=== PATIENT | male | born 1940 | race Caucasian/White ===

== ENCOUNTER 2018-10-18 17:58 | Inpatient (IN) | payer OTHER ==
[~2018-10-18] VITALS: Ht 154.9 cm; Wt 84.4 kg
[2018-10-18 18:01] VITALS: BP_SYST 116
--- NOTE | 2018-10-18 18:01 | NUR ---
Placed in room 01 . Placed on media monitor, blood pressure machine and pulse oximeter. To gown for exam. Side rails up. Report received from CALEB Dorsey
--- NOTE | 2018-10-18 18:02 | NUR ---
Patient arrived BLS from [facility]. Report was given earlier from CALEB Haque stating patient would be transferred to us from Dialysis center for coffee ground emesis x1 this morning and tachycardia of 102 prior to dialysis. Patient was seen at [facility] on October 10, 2018 and diagnosed with aspiration pneumonia. and returned to facility on October 13, 2018. Staff is concerned because no EGD was done and patient returned to facility on no antibiotics. Patient is awake and alert, arrives on trach with t-bar on 4L of . Patient communicates by writing on clipboard. Patient denies any pain at this time. No other complaints/injuries per patient or as noted. Will continue to monitor.
--- NOTE | 2018-10-18 18:05 | NUR ---
Dr Avina at bedside examining patient
--- NOTE | 2018-10-18 18:25 | NUR ---
Note narendraone in EDM - 10/18/18 at 1836 by SDEDCJM # 20 gauge angiocath placed to LAC. Use of asceptic technique. Opsite placed over site. Blood return noted. Blood for lab drawn from site. Flushed with 10 cc of normal saline. No evidence of infiltration noted. Patient tolerated well.
--- NOTE | 2018-10-18 18:25 | NUR ---
# 20 gauge angiocath placed to Lfa. Use of asceptic technique. Opsite placed over site. Blood return noted. Blood for lab drawn from site. Flushed with 10 cc of normal saline. No evidence of infiltration noted. Patient tolerated well.
[2018-10-18 18:48] LABS: BASOPHILS % (AUTO) 0.1 % (0.0-2.0); EOSINOPHILS % (AUTO) 0.1 % (0.0-4.0); HEMATOCRIT 40.2 % (36-54); HEMOGLOBIN 13.2 g/dL (14.0-18.0); LYMPHOCYTES # (AUTO) 0.7 K/uL (1.0-5.5); LYMPHOCYTES % (AUTO) 3.3 % (20.5-51.5); MEAN CORPUSCULAR HEMOGLOBIN 32 pg (27-31); MEAN CORPUSCULAR HGB CONC 33 % (32-36); MEAN CORPUSCULAR VOLUME 99 fL (79.0-98.0); MONOCYTES # (AUTO) 0.8 K/uL (0.0-1.0); MONOCYTES % (AUTO) 4.3 % (1.7-9.3); NEUTROPHILS # (AUTO) 17.9 K/uL (1.8-7.7); NEUTROPHILS % (AUTO) 92.2 % (40.0-70.0); PLATELET COUNT (AUTO) 398 K/uL (130-430); RED BLOOD CELL COUNT(AUTO) 4.07 MIL/uL (4.2-6.2); RED CELL DISTRIBUTION WIDTH 17.3 % (9.0-15.0); WHITE BLOOD COUNT (AUTO) 19.5 K/uL (4.8-10.8)
--- NOTE | 2018-10-18 18:48 | NUR ---
Patient arrives with copy of POLST stating full code.
--- NOTE | 2018-10-18 18:50 | NUR ---
Patient has dialysis MWF. Patient was last dialyzed today prior to arrival in ED
--- NOTE | 2018-10-18 18:50 | NUR ---
Patient is on NOVASOURCE RENAL @ 55CC/HR x20 hours to provide total of 1100 CCs to infuse from 2pm to 10 am or until dose is met.
[2018-10-18] MEDS ORDERED: AMI200 GT (18:58)
[2018-10-18] MEDS ORDERED: APIX2.5T GT (18:58)
[2018-10-18] MEDS ORDERED: FINA5TAB3 GT (18:58)
[2018-10-18] MEDS ORDERED: MIDO5TAB GT (18:58)
[2018-10-18] MEDS ORDERED: LEVA1.2527 NEB (18:58)
[2018-10-18] MEDS ORDERED: PRO40 GT (18:58)
[2018-10-18] MEDS ORDERED: DOXA2TAB GT (18:58)
[2018-10-18] MEDS ORDERED: IPRA0.2S53 IH (18:58)
[2018-10-18] MEDS ORDERED: LACT1CAP61 GT (18:58)
[2018-10-18 19:00] LABS: ANION GAP 11 (5-15); CALCIUM 10.9 mg/dL (8.4-11.0); CHLORIDE 100 mmol/L (98-107); CREATININE 4.29 mg/dL (0.55-1.30); GLUCOSE 159 mg/dL (70-99); POTASSIUM 4.2 mmol/L (3.5-5.1); SODIUM SERUM 136 mmol/L (136-145); UREA NITROGEN, BLOOD 47 mg/dL (8-21)
[2018-10-18] MEDS ORDERED: NEPH GT (19:00)
--- NOTE | 2018-10-18 19:01 | NUR ---
Medication reconciliation completed with information provided by patient's EMAR from facility. Any prior medication reconciliation on file was reviewed and corrected.
[2018-10-18 19:07] LABS: ALANINE AMINOTRANSFERASE 11 U/L (12-78); ALBUMIN 2.5 g/dL (3.4-4.8); ASPARTATE AMINOTRANSFERASE 28 U/L (10-37); TOTAL BILIRUBIN 0.4 mg/dL (0.0-1.0)
[2018-10-18] MEDS ORDERED: NACL 0.9% 1,000 ML IV ONE (19:15)
--- NOTE | 2018-10-18 19:42 | NUR ---
Pt attempting to cough with gurgling sounds coming from trach. SPO2 95% on O2 at 2LPM per T-bar trach. In-line suction provided x 3 removing copious amounts of thick, light-brown sputum. No further coughing noted or gurgling sounds to trach tubing. SPO2 at 96%.
[2018-10-18] MEDS ORDERED: cefTRIAXone 1 GM IVPB PREMIX 50 ML IV ONE (19:45)
[2018-10-18] MEDS ORDERED: PANTOPRAZOLE GRANULES PACKET 40 MG GT ONE (19:45)
[2018-10-18 19:58] LABS: INR 1.1 (0.80-1.20); PROTHROMBIN TIME 11.4 SECS (9.5-12.5)
[2018-10-18] MEDS ORDERED: PANTOPRAZOLE SODIUM 40 MG/VIAL (PROTONIX) IVP ONE (20:00)
[2018-10-18] MEDS ORDERED: PANTOPRAZOLE SODIUM 40 MG/VIAL (PROTONIX) ONE (20:04)
--- NOTE | 2018-10-18 20:13 | NUR ---
patient arrived with his won ambu bag and suction machine. Will be sent to floor with patient
[2018-10-18] MEDS ORDERED: ALBUTEROL SULFATE 0.083% 2.5 MG/3 ML VIAL.NEB INH PRN (20:30)
[2018-10-18] MEDS ORDERED: IPRATROPIUM BROM 0.5 MG/2.5 ML VIAL.NEB (ATROVENT) INH PRN (20:30)
[2018-10-18 20:46] LABS: HEMATOCRIT 37.1 % (36-54); HEMOGLOBIN 12.1 g/dL (14.0-18.0)
--- NOTE | 2018-10-18 20:53 | NUR ---
ADMIT NOTE Received pt from ER to the floor with a diagnosis of GI BLEED AND CHRONIC TRACH. Admission process initiated. patient oriented to pain management, safety and call light-teach back done.
--- NOTE | 2018-10-18 20:53 | NUR ---
Patient will be admitted to care of Dr. Ga. Admitted to Telemetry unit. Will go to room 112 A. Belongings list completed. Summary report printed. Report will be given at bedside.
[2018-10-18 21:24] VITALS: BP_SYST 139
[2018-10-18 21:29] VITALS: BP_SYST 123
--- NOTE | 2018-10-18 22:00 | NUR ---
christian education director Physical Assessment NOTES: took over care from nurse Pk, from [facility] to ER c/o vomiting coffee ground and increase heart rate for 2 days with Diagnosis of GI Bleed and Chronic trach. pt. awake , alert, nonverbal, communicates thru writing, trach intact to T bar, O2 @ 4l, coughing a lot, suction thick brownish mucus secretions. placed on telemetry monitor and shows sinus tach. moves extremities, weak on both lower extremities, came in with big heel protector. checked skin with multiple areas of scabs on his toes,both arms, both thigh wrapped with kerlix roll and dressing endorse to be skin graft, appears red and on left upper back. dressing also on sacral area, with some type of plastic drain on coccyx area, did not remove dressing at this time , needs to be seen by MD.IV NS via left forearm/wrist area with NS @ 100 cc/hr. pt. is NPO, with g tube and clamped. [pt. apparently on HD, hiren or permacath on rt. subclavian. call light within reach, safety measures in place, bed alarm on, clip board with pen provided.
[2018-10-18] MEDS: ALBUTEROL SULFATE 0.083% 2.5 MG/3 ML VIAL.NEB INH SCH (23:47)
[2018-10-18] MEDS: IPRATROPIUM BROM 0.5 MG/2.5 ML VIAL.NEB (ATROVENT) INH SCH (23:47)
--- NOTE | 2018-10-19 | NUR ---
NOTES: pt. checked and was sleeping, in no acute distress. HOB elevated for comfort.
[2018-10-19] MEDS: NACL 0.9% 1,000 ML IV SCH ×3 (00:18→17:40)
--- NOTE | 2018-10-19 00:31 | NUR ---
CONSULT: CONSULT CALLED FOR DR. YANIQUE WILKINSON IS PI/SENIOR RESEARCH ASSOCIATE FOR TODAY I SPOKE KYLER PINEDA REASON FOR CONSULT: CHRONIC TRACH REQUESTING CONSULT: DR. AGUILERA Addendum: 10/19/18 at 0035 by Saida White HI/ FORGOT TO MENTION THAT DR. WHEELER IS ON FOR DR. CHANEL
--- NOTE | 2018-10-19 00:39 | NUR ---
CONSULT CONSULT CALLED FOR DR. HANNA I SPOKE WITH ANNE PINEDA REASON FOR CONSULT: DIALYSIS REQUESTING CONSULT: DR. AGUILERA MESSAGE AND DELIVERY SERVICE PRICER PHONE NUMBER: [phone]
--- NOTE | 2018-10-19 00:48 | NUR ---
CONSULT: CONSULT CALLED FOR DR. BART WILKINSON IS BASE WAD OPERATOR ADJUSTER I SPOKE WITH ANNE PINEDA REASON FOR CONSULT: GI BLEEDING K [employer]OL PRINCIPAL PHONE NUMBER: [phone]
--- NOTE | 2018-10-19 01:00 | NUR ---
NOTES: remain sleeping, cardiac pattern unchanged. continue to monitor.
[2018-10-19 01:30] VITALS: BP_SYST 102
[2018-10-19 02:28] LABS: HEMATOCRIT 33.3 % (36-54)
[2018-10-19] MEDS: IPRATROPIUM BROM 0.5 MG/2.5 ML VIAL.NEB (ATROVENT) INH SCH ×6 (03:00→23:56)
[2018-10-19] MEDS: ALBUTEROL SULFATE 0.083% 2.5 MG/3 ML VIAL.NEB INH SCH ×6 (03:00→23:56)
--- NOTE | 2018-10-19 03:15 | NUR ---
NOTES: pt. awakened and called , wants to be suction via trach, still with thick brownish secretions. suction himself orally with cialin. repositioned. needs attended.
--- NOTE | 2018-10-19 05:00 | NUR ---
NOTES: pt. already awake. wants to be suctioned via trach, oral care done. repositioned, turn to sides, able to help pull up himself in bed. IV intact. no urine output. needs attended. call light within reach.
--- NOTE | 2018-10-19 06:00 | NUR ---
NOTES: pt. remains awake, watching TV. IV intact. in no acute distress. call light at bedside.
[2018-10-19] MEDS: PIPERACILLIN/TAZO 2.25G/DEX-IS 50 ML IV SCH ×3 (06:30→17:39)
--- NOTE | 2018-10-19 06:45 | NUR ---
CLOSING NOTES; pt. resting comfortably, suctioned self orally, kept HOB elevated. pharmacy callled about Zosyn, pt. allergic with amoxicillin, will check with MD today. for further care and observation, call light in reach, safety measures in place, wound care nurse consult today, will endorse to day shift.
--- NOTE | 2018-10-19 07:35 | NUR ---
OPENING NOTE Patient resting in the bed. No acute distress. Respiration even and unlabored. Trach intact, O2 at 4L/min via T-bar. Denied of pain at this time. Skin warm and dry to touch. IV intact ot left wrist, no redness, no swelling, no drainage. ON NS at 100ml/hr, infusing well. Permacath intact to right subclavian, coved with clean and dry dressing, no bleeding noted. Safety measure maintained. Bed locked in low position, side rails up, bed alarm on. Call light within reached. Will continue to monitor.
[2018-10-19 07:50] VITALS: BP_SYST 108
[2018-10-19 08:41] LABS: HEMATOCRIT 32.3 % (36-54); HEMOGLOBIN 10.6 g/dL (14.0-18.0)
[2018-10-19] MEDS: AMIODARONE HCL 200 MG TABLET GT SCH (09:00)
[2018-10-19] MEDS: MIDODRINE HCL 5 MG TABLET (PROAMATINE) GT SCH (09:00)
[2018-10-19] MEDS: PANTOPRAZOLE SODIUM 40 MG/VIAL (PROTONIX) IVP SCH ×2 (09:44→21:55)
--- NOTE | 2018-10-19 09:52 | NUR ---
VERIFY THE ORDER OF ZOSYN Verify the order of Zosyn with Danny Andino via phone. Reported to Dr. Ga, patient has allergy of Amoxicillin, ask if okay to give Zosyn. Dr. Ga stated "just give Zosyn, patient already received from ER yesterday and nothing happen".
--- NOTE | 2018-10-19 10:02 | NUR ---
Nutrition Update Bret Scale 12 noted. Pt admitted for GI bleed and chronic trach. Diet: NPO BMI: 28.5 kg/m2 RD to follow per nutrition care standards.
--- NOTE | 2018-10-19 10:40 | NUR ---
WOUND EVALUATION: Late note for 1040 secondary to patient care. Wound Consult received from Dr. Ga. Thank you, Dr. Ga, for the consult. Patient received in a Rj Bed, awake, alert, oriented, limited vocally secondary to Tracheostomy (uses pen and paper to communicate). Patient is unable to turn independently. Bret Score is a 12. Past Medical History: Chronic Tracheostomy, not on ventilator, G-tube, End-Stage Renal Disease, chronic Atrial Fibrillation, Hypertension, cardiac disease. Recent Labs: WBC 19.5, RBC 4.07, hemoglobin 10.5, hematocrit 32.0, BUN 47, creatinine 4.29, glucose 159, albumin 2.5. Microbiology: Blood culture results 2 in progress. MRSA screen results positive. Intrinsic factors that delay wound healing: Hypoalbuminemia. Extrinsic factors that delay wound healing: Decreased mobility. Patient said that the wounds have been treated for the past 9 months. Patient's board with skin assessment details was wiped clean, will re-assess sites tomorrow. Wound Assessment: 1. Left anterior lateral thigh: Possible surgical skin graft donor site, present on admission. Site has red tissue, with yellow and black scab material. Mild odor, scant yellow drainage. Renay-wound intact. 2. Right anterior lateral thigh: Possible surgical skin graft donor site, present on admission. Site has red tissue, with yellow and black scab material. Mild odor, scant yellow drainage. Renay-wound intact. Recommend: Cleanse sites with normal saline. Pat dry. Apply Venelex ointment to sites. Cover sites with oil emulsion dressings, then ABD Pads. Wrap with zaire wrap. Secure with tape. 3. Left buttock: Possible surgical skin graft recipient site, present on admission. Site has healing pink skin tissue. No odor, scant sanguineous drainage. Renay-wound intact. 4. Right buttock: Possible surgical skin graft recipient site, present on admission. Site has healing pink skin tissue. No odor, scant sanguineous drainage. Renay-wound intact. Recommend: Cleanse sites with normal saline. Pat dry. Cover sites with oil emulsion dressings, then ABD Pads. Secure with transparent dressings. 5. Left second toe: Acute on chronic wound of unknown etiology, present on admission. Wound bed has 95% black scab, 5% red tissue. No odor, scant sanguineous drainage. Periwound intact. Recommend: Cleanse wound with normal saline. Apply SurePrep to renay-wound. Cover with foam dressing. Perform wound care daily, and as needed for dressing soiling or dislodgement. 6. Left third toe, dorsal lateral aspect: Area of non-blanchable erythema, present on admission. 7. Right third toe, dorsal lateral aspect: Area of non-blanchable erythema, present on admission. 8. Right plantar foot: Multiple, multiple scabs, present on admission. No odor, no drainage. Recommend: No dressings needed. Continue to monitor sites every shift. Also recommend: Reposition patient [id number] only every 2 hours with one pillow underneath back, and pillow underneath pelvis. Off-load pressure areas with pillows for pressure re-distribution. Offload, elevate and float bilateral heels with one pillow lengthwise under each extremity at all times. Perform skin care and monitor skin integrity Q shift. Use moisture barrier cream on buttocks and other moisture susceptible areas QID and as needed for soiling. Place patient on a low air-loss mattress.
--- NOTE | 2018-10-19 11:07 | NUR ---
POSITIVE MRSA OF NARES Received from lab, patient with MRSA of nares positive. Danny Andino in the unit informed.
[2018-10-19 12:00] VITALS: BP_SYST 111
--- NOTE | 2018-10-19 13:00 | NUR ---
ROUND Patient resting in the bed. No acute distress. Respiration even and unlabored. Trach intact to O2 4L/min. HOB elevated. Safety measure maintained. Call light within reached. Bed locked in low position, side rails up, bed alarm on. Continue to monitor.
[2018-10-19 14:06] LABS: HEMOGLOBIN 10.5 g/dL (14.0-18.0)
--- NOTE | 2018-10-19 15:25 | NUR ---
ROUND Patient resting in the bed. No acute distress. Respiration even and unlabored. Trach intact to O2 4L/min. HOB elevated. On contact isolation. Safety measure maintained. Call light within reached. Bed locked in low position, side rails up, bed alarm on. Continue to monitor.
[2018-10-19 15:26] VITALS: BP_SYST 112
[2018-10-19] MEDS: BALSAM PERU/CASTOR OIL 60 GM OINT...G. TP SCH (17:40)
--- NOTE | 2018-10-19 18:05 | NUR ---
SEEN AND EXAMINED BY ARISTEO WYNN WITH ORDER RECEIVED.
--- NOTE | 2018-10-19 18:45 | NUR ---
CLOSING NOTE Patient resting in the bed. No acute distress. Respiration even and unlabored. Trach intact, O2 at 4L/min via T-bar. Denied of pain at this time. Skin warm and dry to touch. IV intact to left wrist, no redness, no swelling, no drainage. On NS at 100ml/hr, infusing well. Permacath intact to right subclavian, coved with clean and dry dressing, no bleeding noted. No contact isolation for MRSA of nares. All needs met and attended. Safety measure maintained. Bed locked in low position, side rails up, bed alarm on. Call light within reached. Will endorse to night nurse.
--- NOTE | 2018-10-19 19:05 | NUR ---
CHANGE OF SHIFT; pt. awake, alert , in no acute distress. on trach to T bar @ 4liters O2. on contact isolation for MRSA nares. will reassess later. call light at bedside. safety measures in place.
[2018-10-19 20:15] VITALS: BP_SYST 132
--- NOTE | 2018-10-19 20:30 | NUR ---
NOTES: flower shop laborer/designer at bedside for blood draw for H/H as ordered. contact isolation observed for MRSA nares.suctioned via trach #7 Port[place].suctioned himself orally. needs attended.call light within reach.
[2018-10-19 20:52] LABS: HEMATOCRIT 30.9 % (36-54); HEMOGLOBIN 10.2 g/dL (14.0-18.0)
--- NOTE | 2018-10-19 22:45 | NUR ---
NOTES: suctioned via trach with thick secretions, oral care done and hs care. repositioned. call light at bedside.
--- NOTE | 2018-10-20 00:15 | NUR ---
NOTES: made rounds and sleeping. condition guarded. call light in reach.
[2018-10-20 01:52] VITALS: BP_SYST 127
--- NOTE | 2018-10-20 02:30 | NUR ---
NOTES: pt. sleeping at intervals. coughs every now and then, still with thick mucus secretions.
[2018-10-20 02:38] LABS: HEMOGLOBIN 10.3 g/dL (14.0-18.0)
[2018-10-20] MEDS: PIPERACILLIN/TAZO 2.25G/DEX-IS 50 ML IV SCH ×4 (03:55→18:00)
[2018-10-20] MEDS: NACL 0.9% 1,000 ML IV SCH ×2 (03:56→15:53)
--- NOTE | 2018-10-20 04:06 | NUR ---
NOTES: pt. called , suctioned via trach, oral care done, able to remove old secretions on his palate and tongue, felt much better after. IVF changed bag.
--- NOTE | 2018-10-20 05:00 | NUR ---
NOTES; pt. repositioned, suctioned via trach and orally, oral care done. needs attended. safety measures in place.
[2018-10-20] MEDS: ALBUTEROL SULFATE 0.083% 2.5 MG/3 ML VIAL.NEB INH SCH ×6 (05:50→23:08)
[2018-10-20] MEDS: IPRATROPIUM BROM 0.5 MG/2.5 ML VIAL.NEB (ATROVENT) INH SCH ×6 (05:51→23:08)
--- NOTE | 2018-10-20 06:30 | NUR ---
CLOSING NOTES; pt. went back to sleep, appears comfortable, trach intact and IV infusing. for further care and assist.. contact isolation observed.
--- NOTE | 2018-10-20 07:43 | NUR ---
OPENING NOTE Patient resting in the bed. No acute distress. Respiration even and unlabored. Trach intact to O2 at 4L/min via T-bar. Denied of pain at this time. Skin warm and dry to touch. IV intact to left wrist, no redness, no swelling, no drainage. On NS at 100ml/hr, infusing well. Permacath intact to right subclavian, coved with clean and dry dressing, no bleeding noted. Safety measure maintained. Bed locked in low position, side rails up, bed alarm on. Call light within reached. Will continue to monitor.
[2018-10-20 08:00] VITALS: BP_SYST 135
--- NOTE | 2018-10-20 08:34 | NUR ---
SEEN AND EXAMINED BY JANUSZ FREEMAN.
--- NOTE | 2018-10-20 08:59 | NUR ---
SEEN AND EXAMINED BY OSWALDO WEISS WITH ORDER RECEIVED.
--- NOTE | 2018-10-20 09:28 | NUR ---
SEEN AND EXAMINED BY TRISTAN HERNANDEZ.
[2018-10-20 09:46] LABS: HEMATOCRIT 32.4 % (36-54); HEMOGLOBIN 10.8 g/dL (14.0-18.0)
--- NOTE | 2018-10-20 09:58 | NUR ---
CONSULT NEPHRO: Eleanor PALMA CALLED SPOKE TO JESSICA DIALED [phone] HANNA
[2018-10-20] MEDS: PANTOPRAZOLE SODIUM 40 MG/VIAL (PROTONIX) IVP SCH ×2 (10:08→21:30)
[2018-10-20] MEDS: MIDODRINE HCL 5 MG TABLET (PROAMATINE) GT SCH (10:09)
[2018-10-20] MEDS: AMIODARONE HCL 200 MG TABLET GT SCH (10:10)
[2018-10-20] MEDS: BALSAM PERU/CASTOR OIL 60 GM OINT...G. TP SCH (10:10)
--- NOTE | 2018-10-20 10:17 | NUR ---
RECEIVED THE CALL FROM DR. SANTILLAN, REAL Reported to Dr. Santillan, patient dialysis schedule on Thu, Thu and Thursday. Patient admitted on Thursday after dialysis. Dr. Hopkins saw the patient and with order of dialysis today still active in the system. Dr. Santillan stated "do the dialysis today, will come to see the patient".
[2018-10-20 12:13] VITALS: BP_SYST 149
--- NOTE | 2018-10-20 12:25 | NUR ---
ROUND Patient resting in the bed with eyes close. No acute distress. Trach intact to O2 via T-bar. HOB elevated. GT intact, patient, no residual. On Nepro at 55ml/hr, tolerated well. Continue on contact isolation. Safety measure maintained. Call light within reached. Bed locked in low position, side rails up, bed alarm on. Continue to monitor.
--- NOTE | 2018-10-20 14:25 | NUR ---
FRIEND VISITED AT BEDSIDE Patient resting in the bed and friend visited at bedside and talked to patient. No acute distress. Respiration even and unlabored. Trach intact to O2 via T-bar. Contact isolation maintained. Safety measure maintained. Call light within reached. Bed locked in low position, side rails up. Bed alarm on. Continue to monitor.
[2018-10-20 15:45] LABS: HEMATOCRIT 32.1 % (36-54); HEMOGLOBIN 10.4 g/dL (14.0-18.0)
--- NOTE | 2018-10-20 16:10 | NUR ---
ROUND Patient resting in the bed with eyes closed. No acute distress. Respiration even and unlabored. Trach intact to O2 4L/min. HOB elevated. On contact isolation. Safety measure maintained. Call light within reached. Bed locked in low position, side rails up, bed alarm on. Continue to monitor.
[2018-10-20 16:30] VITALS: BP_SYST 137
--- NOTE | 2018-10-20 16:30 | NUR ---
Dietitian Recommendations * Recommend Nepro at 55 ml/hr, Mirza BID, Prosource BID, Free Water Flush: 100 ml Q8h via GT Provides: 2656 kcal/day, 142 gm protein/day, and 1260 ml free water/day Meets: 91% of upper end of estimated caloric needs and 114% of lower end of estimated protein needs LP, RD Please refer to Nutrition Assessment for details. Addendum: 10/20/18 at [address] Amended: Links added.
--- NOTE | 2018-10-20 18:00 | NUR ---
HEMODIALYSIS STARTED Patient resting in the bed. No acute distress. VS stable. Hemodialysis started, dialysis nurse at bedside. Safety measure maintained. Call light within reached. Bed locked in low position, side rails up, bed alarm on. Continue to monitor.
--- NOTE | 2018-10-20 18:50 | NUR ---
CLOSING NOTE Patient continue on hemodialysis, dialysis nurse at bedside. No acute distress. Trach intact to O2 4L/min via T-bar. GT intact, patent, continue on Nepro at 55ml/hr, infusing well. HOB elevated all the time. No nausea/vomiting noted during shift. All needs met and attended. Safety measure maintained. Contact isolation maintained. Call light within reached. Will endorse to night nurse.
[2018-10-20] MEDS ORDERED: HEPARIN SODIUM,PORCINE 5000 UNITS/ML VIAL SUBCUT ONE (19:30)
--- NOTE | 2018-10-20 19:30 | NUR ---
Opening notes Received report. Patient is resting in bed receiving hemodialysis. No signs of distress noted. Breathing even and unlabored. IV patent and intact, infusing fluids. VSS. No needs at this time. Call light with the patient. Safety precautions in place. HD dialysis nurse at bedside.
[2018-10-20 20:00] VITALS: BP_SYST 118
[2018-10-20 20:45] LABS: HEMOGLOBIN 11.2 g/dL (14.0-18.0)
--- NOTE | 2018-10-20 21:18 | NUR ---
HD finished Per HD nurse, 2 L out. Patient is in stable condition. VSS. Will administer scheduled medications. Educated the action and side effects of medications. Patient verbalized understanding. No residual noted with G-tube. G-tube flushes easily. Nepro @ 55 ml/hr.
--- NOTE | 2018-10-20 23:00 | NUR ---
Dressing change done. Photographs taken. Unable to print pictures. Pictures left on memory card. Patient tolerated well. No other needs. Call light with the patient. Safety precautions in place.
[2018-10-21] MEDS: PIPERACILLIN/TAZO 2.25G/DEX-IS 50 ML IV SCH ×2 (00:50→05:54)
[2018-10-21] MEDS: NACL 0.9% 1,000 ML IV SCH ×3 (00:51→13:18)
--- NOTE | 2018-10-21 01:00 | NUR ---
Resting Patient resting in bed, watchin TV. No signs of distress noted. Breathing even and unlabored. call light with the patient. safety precautions in place.
[2018-10-21] MEDS: IPRATROPIUM BROM 0.5 MG/2.5 ML VIAL.NEB (ATROVENT) INH SCH ×6 (03:04→23:49)
[2018-10-21] MEDS: ALBUTEROL SULFATE 0.083% 2.5 MG/3 ML VIAL.NEB INH SCH ×6 (03:04→23:49)
--- NOTE | 2018-10-21 04:22 | NUR ---
Sleeping no signs of distress noted. breathing even and unlabored, ivf infusing well. no needs. call light with the patient, safety precautions in place.
[2018-10-21 04:55] VITALS: BP_SYST 127
--- NOTE | 2018-10-21 06:31 | NUR ---
Closing notes Patient is resting comfortably in bed. No signs of distress noted. Breathing is even and unlabored. Trach is intact with T-bar. Trach and oral suctioning provided as needed throughout the shift. Thick white secretions were noted. G-tube feeding in place. Patient tolerating well. All needs met throughout the shift. call light with the patient. Safety precautions in place. Will endorse care to day shift RN.
--- NOTE | 2018-10-21 07:45 | NUR ---
Opening Notes 'Patient received currently lying comfortably in his bed with head of the bed elevated, on 02 at 4lpm via NC, alert, awake and uses pen and paper for communication. Denies any pain or discomfort at this time. Trach is intact with t-bar in place. respiration is even and unlabored. G-tube in place covered with dry and intact dressing, feeding running well. IV line intact and in place. IVF running well. Attended to needs and anticipated. Call light within the reach. Contact isolation observed. Will continue to monitor.
[2018-10-21] MEDS: AMIODARONE HCL 200 MG TABLET GT SCH (08:45)
[2018-10-21] MEDS: MIDODRINE HCL 5 MG TABLET (PROAMATINE) GT SCH (08:45)
[2018-10-21] MEDS: PANTOPRAZOLE SODIUM 40 MG/VIAL (PROTONIX) IVP SCH ×2 (08:46→20:58)
[2018-10-21] MEDS: BALSAM PERU/CASTOR OIL 60 GM OINT...G. TP SCH (09:00)
[2018-10-21 09:21] VITALS: BP_SYST 128
--- NOTE | 2018-10-21 09:30 | NUR ---
Medication Administration Patient educated on drug usage and its potential side effects, patient nods for understanding. Medications due given via G-tube, well tolerated. No residual noted to the g-tube. Call light within the reach. Will continue to monitor.
[2018-10-21 11:26] VITALS: BP_SYST 128
--- NOTE | 2018-10-21 11:30 | NUR ---
RN ROUND Patient current lying comfortably in his bed with 02 at 4lpm via NC. Denies any pain or discomfort at this time. No suctioning noted at this time. Attended to needs and anticipated. Call light within the reach. Will continue to monitor.
[2018-10-21 12:43] VITALS: BP_SYST 127
--- NOTE | 2018-10-21 13:39 | NUR ---
RN ROUND Patient remain to be alert, awake and verbally responsive. Denies any pain or discomfort at this time, trach remain to be intact, G-tube feeding running well. Attended to needs and anticipated. Call light within the reach.
--- NOTE | 2018-10-21 15:11 | NUR ---
RN ROUND Patient resting well in bed, Head of the bed elevated. Denies any pain or discomfort, no SOB, no acute distress at this time. Call light within the reach. Contact isolation observed. Will continue to monitor.
[2018-10-21 16:35] VITALS: BP_SYST 125
--- NOTE | 2018-10-21 17:20 | NUR ---
Rn ROUND patient currently lying comfortably in his bed with trach intact and in place with T-bar. Denies any pain or discomfort. Call light within the reach. Contact isolation observed.
--- NOTE | 2018-10-21 19:04 | NUR ---
Closing Notes patient currently lying comfortably in his bed, trach remain to be intact and patent with T-bar with 02 at 4lpm. Suctioned as needed, well tolerated. Denies any pain or discomfort. INF infusing well. G-tube remain to be patent. Call light within the reach. Will endorse to next shift.
--- NOTE | 2018-10-21 19:30 | NUR ---
Opening notes Received report. Patient is resting comfortably in bed. No signs of distress noted. Breathing even and unlabored, has trach and T-bar @ 4 L/min. Patient able to express needs with pen and paper. No needs at this time. Call light with the patient. Safety precautions in place.
[2018-10-21 20:00] VITALS: BP_SYST 128
--- NOTE | 2018-10-21 21:00 | NUR ---
Medications/Dr. Bowser at bedside Scheduled medications given. Educated the action and side effects of medications. Patient verbalized understanding and tolerated well. No signs of allergic reaction noted. G-tube runnin Nepro @ 55 ml/hr. No residual noted.G-tube is easily flushed. Dr. Bowser at bedside. Orders for Hemodialysis tomorrow.
--- NOTE | 2018-10-21 23:00 | NUR ---
Dressing change Patient had pasty brown BM. Hygiene care provided. Dressing change done. Patient tolerated well. Patient repositioned to comfort. Suctioned patient's trach. Thick white secretion noted. Patient able to suction his mouth. No other needs.Call light with the patient. Safety precautions in place.
[2018-10-22] MEDS: NACL 0.9% 1,000 ML IV SCH (00:53)
--- NOTE | 2018-10-22 01:00 | NUR ---
Resting Patient resting in bed, watching TV. No signs of distress noted. Breathing even and unlabored. IVF infusing well. Patient able to suction mouth. No needs. Call light with the patient. Safety precautions in place. Call light with the patient. Safety precautions in place.
[2018-10-22 01:20] VITALS: BP_SYST 135
--- NOTE | 2018-10-22 03:23 | NUR ---
Sleeping No signs of distress noted. Breathing even and unlabored. Call light with the patient. Safety precautions in place.
[2018-10-22] MEDS: ALBUTEROL SULFATE 0.083% 2.5 MG/3 ML VIAL.NEB INH SCH ×5 (03:55→19:52)
[2018-10-22] MEDS: IPRATROPIUM BROM 0.5 MG/2.5 ML VIAL.NEB (ATROVENT) INH SCH ×5 (03:55→19:52)
--- NOTE | 2018-10-22 05:31 | NUR ---
Sleeping No signs of distress noted. Breathing even and unlabored. IVF and feeding infusing well. No other needs. Call light with the patient. Safety precautions in place.
--- NOTE | 2018-10-22 06:29 | NUR ---
Closing notes Patient is asleep at this time. No signs of distress noted. Breathing is even and unlabored. Trach is intact with T-bar @4L/min. Trach and oral suctioning provided as needed throughout the shift. Thick white secretions were noted. G-tube feeding in place. Patient tolerating well. All needs met throughout the shift. call light with the patient. Safety precautions in place. Will endorse care to day shift RN.
[2018-10-22 08:00] VITALS: BP_SYST 125
--- NOTE | 2018-10-22 08:00 | NUR ---
initial notes rec patient awake alert with hob elevated. ivl on the r forerm intact. no infiltration noted. bed to the lowest position and side rails up and locked. call light withn reached and knows when to call for assistance. will continue to monitor patient. Addendum: 10/22/18 at 0902 by Andreia Edwards RN intended for another patient.
--- NOTE | 2018-10-22 08:10 | NUR ---
initial notes rec patient awake but non verbally responsive. communicated through writing. with a trache connected to t bar. suctioned obtaining thin to thick whitish to yellowish phlegm. gt in placed with with nephro feedings and sahara well. incontinent of both ways and keep patient dry and clean.turned repositioned for comfort.
[2018-10-22] MEDS: AMIODARONE HCL 200 MG TABLET GT SCH (09:00)
[2018-10-22] MEDS: MIDODRINE HCL 5 MG TABLET (PROAMATINE) GT SCH (09:00)
[2018-10-22] MEDS: BALSAM PERU/CASTOR OIL 60 GM OINT...G. TP SCH (09:00)
[2018-10-22] MEDS: PANTOPRAZOLE SODIUM 40 MG/VIAL (PROTONIX) IVP SCH (09:37)
--- NOTE | 2018-10-22 10:30 | NUR ---
rounds seen by dr coy and with order for d/c to [facility]. awaiting for dialysis to be started.
[2018-10-22 11:22] VITALS: BP_SYST 145
--- NOTE | 2018-10-22 13:00 | NUR ---
rounds dialysis started on the patient by dialysis nurse. no sob noted.
[2018-10-22] MEDS ORDERED: HEPARIN SODIUM,PORCINE 5000 UNITS/ML VIAL MC ONE (13:30)
--- NOTE | 2018-10-22 14:00 | NUR ---
DC Planning: Verified with pt's sister Jailene via phone that the pt resided at [facility] for about 4 months. She agreed with the transferring back to [facility].
--- NOTE | 2018-10-22 14:33 | NUR ---
Discharge Planning: DCP faxed referral to [facility] (f [phone] p [phone]) DCP to follow up. Addendum: 10/22/18 at 1619 by Adam España RN Per Rosie, at [facility], given room assignment # 222 B, RN to report # [phone] ext nursing station 1. Addendum: 10/22/18 at 1638 by Krystyna BENAVIDES [facility] (f [phone] p [phone]) Rm 222B, transportation [facility] ([phone]) 8:30pm P/U packet taken to nurse station. Addendum: 10/22/18 at 1643 by Krystyna Nicolas DP BLS with RT arranged with transportation.
[2018-10-22 15:04] VITALS: BP_SYST 124
--- NOTE | 2018-10-22 19:00 | NUR ---
closing notes late entry endorsed to night nurse re pt leaving tonight to snf. pistures of open wound was done by nathan singh. gt feeding in progress and sahara well. no residual noted. was suctioned prn obtaining thick whitish to yellowish phlegm. resting comfortably at this time.
[2018-10-22 20:04] VITALS: BP_SYST 133
[2018-10-22 20:10] VITALS: BP_SYST 133
--- NOTE | 2018-10-22 20:58 | NUR ---
Patient discharged with D/C packet and instructions with [facility] transportation. Present with 2 EMT and 1 VALIDATION ENGINEER with patient. All belongings sent with patient. Patient stable transported via gurney on 4L TBar. No complaints of pain or respiratory distress. Addendum: 10/22/18 at 2103 by Robert Mitchell RN GTube site clean dry and intact. IV D/C'ed with no bleeding. Catheter tip intact upon removal.
== END 2018-10-22 20:58 | DRG 871 ==
LOC: SED 17:58 → STU 20:05
PROVIDERS: ADMIT Internal Medicine Hospice and Palliative Medicine; ATTEND Internal Medicine Hospice and Palliative Medicine
PROC: 5A1D70Z Performance of Urinary Filtration, Intermittent, Less than 6 Hours Per Day (ICD-10-PCS; principal; 2018-10-20)
PROC: 5A1D70Z Performance of Urinary Filtration, Intermittent, Less than 6 Hours Per Day (ICD-10-PCS; 2018-10-22)
DX: A41.9 Sepsis, unspecified organism (principal); N18.6 End stage renal disease; J96.20 Acute and chronic respiratory failure, unspecified whether with hypoxia or hypercapnia; R53.2 Functional quadriplegia; J18.9 Pneumonia, unspecified organism; K92.2 Gastrointestinal hemorrhage, unspecified; I12.0 Hypertensive chronic kidney disease with stage 5 chronic kidney disease or end stage renal disease; G93.40 Encephalopathy, unspecified; D63.1 Anemia in chronic kidney disease; R13.10 Dysphagia, unspecified; N40.0 Benign prostatic hyperplasia without lower urinary tract symptoms; K21.9 Gastro-esophageal reflux disease without esophagitis; Y95 Nosocomial condition; I48.2 Chronic atrial fibrillation; Z99.2 Dependence on renal dialysis; Z79.01 Long term (current) use of anticoagulants; Z88.1 Allergy status to other antibiotic agents; Z79.899 Other long term (current) drug therapy; Z93.0 Tracheostomy status; Z93.1 Gastrostomy status
CPT/HCPCS: 36415; 36600; 71045; 80053; 82550-TC; 82803-TC; 83605; 83880; 83970; 84484; 85018-TC; 85025; 85610-TC; 86886; 86900; 86901; 87040-TC; 87081; 90935; 90937; 93005; 94640; 94760; 96365; 96367; 96375; 99291; C9113; G0378; J0696; J1644; J1956; J2543; J7030; J7613